=== PATIENT | male | born 1975 | race Caucasian/White ===

== ENCOUNTER 2016-12-21 13:27 | Inpatient (IN) | payer MEDICARE, MEDICAID ==
[2016-12-21] VITALS (9 sets, daily range): BP systolic 130–158; BP diastolic 71–94; PULSE 79–121; RESP 18–20; TEMP 98.2–100.1; O2SAT 96–100
[~2016-12-21] VITALS: Ht 172.7 cm; Wt 55.2 kg
[~2016-12-21 13:27] MED LIST: CHLO7.5 PO; DIPH25CA PO; FOLI400T PO; HYDR1CRE TOPICAL; LACO100 PO; LACO50 PO; MAPA325T PO; MILKSUS PO; SERO25TA PO; ZANT150T2 PO
[2016-12-21] MEDS ORDERED: AZITHROMYCIN INJ 500 MG in SODIUM CHLOR 0.9% 250 ML INJ 250 ML IV STA (13:36)
[2016-12-21] MEDS ORDERED: SODIUM CHLOR 0.9% 1000 ML INJ 800 ML IV ONE (13:36)
[2016-12-21] MEDS ORDERED: SODIUM CHLOR 0.9% 1000 ML INJ 1,000 ML IV ONE (13:36)
[2016-12-21] MEDS ORDERED: PIPERACIL-TAZO 4.5 GM PREMIX 100 ML IV STA (13:36)
[2016-12-21] MEDS ORDERED: RESP: ALBUTEROL 2.5 MG/3 ML NEB (SCH) INH ONE (13:45)
[2016-12-21] MEDS ORDERED: methylPREDNISolone SOD SUCC 125 MG/2 ML VIAL IV ONE (13:45)
--- NOTE | 2016-12-21 13:45 | PD ---
HPI Chief Complaint: ams Time Seen by Provider: 13:44 Travel History International Travel<30 days: No Contact w/Intl Traveler<30days: No Traveled to known affect area: No History of Present Illness HPI 41-year-old male with history of dementia, seizure disorder, schizoaffective disorder,resides in a [facility], currently being treated for pneumonia with Rocephin and Levaquin, presents to the emergency department today for evaluation of increasing lethargy. Patient has not been eating as well as he typically does and has been more tired. Per report, the patient has been sent here for IV fluids and further evaluation. At this time, patient is opening eyes spontaneously but is nonverbal and unable to provide any history. PFSH Past Medical History Alzheimer's Disease: Yes Autoimmune Disease: No Cardiovascular Problems: No Dementia: Yes Endocrine: No Musculoskeletal: Yes (UNSTABLE ON HIS FEET) Psychiatric: Yes (dementia) Respiratory: No Seizures: Yes Past Surgical History Pacemaker: No Other Surgery: Yes Social History Alcohol Use: No Tobacco Use: No Substance Use: Yes (marijuana) Allergies-Medications (Allergen,Severity, Reaction): Coded Allergies: Aricept (Verified Allergy, Severe, Seizures, 03/02/13) Depakote (Verified Allergy, Severe, UKN, 03/02/13) Exelon (Verified Allergy, Severe, Seizures, 03/02/13) Namenda (Verified Allergy, Severe, Seizures, 03/02/13) Reported Meds & Prescriptions Reported Meds & Active Scripts Active Diphenhydramine (Diphenhydramine HCl) 25 Mg Cap 25 Mg PO Q6H PRN 10 Days Hydrocortisone Topical 1% Cream 1 Applic TOPICAL BID 10 Days Vimpat (Lacosamide) 100 Mg Tab 100 Mg PO DAILY@1600 30 Days Vimpat (Lacosamide) 50 Mg Tab 50 Mg PO DAILY@0600 30 Days Reported Milk of Magnesia Liq (Magnesium Hydroxide) 400 Mg/5 Ml Susp 30 Ml PO EVERY 3 DAYS Folic Acid 400 Mcg Tab 400 Mcg PO DAILY Seroquel (Quetiapine Fumarate) 25 Mg Tab 25 Mg PO HS Zantac (Ranitidine HCl) 150 Mg Tab 150 Mg PO DAILY Tranxene T (Clorazepate Dipotassium) 7.5 Mg Tab 3.75 Mg PO BID Mapap (Acetaminophen) 325 Mg Tab 325 Mg PO Q4HR PRN Review of Systems Except as stated in HPI: all other systems reviewed are Neg Physical Exam Narrative GENERAL: Thin male pt, non verbal, lying in bed, in no acute distress SKIN: Warm and dry. HEAD: Atraumatic. Normocephalic. EYES: Pupils equal and round. No scleral icterus. No injection or drainage. ENT: No nasal bleeding or discharge. Mucous membranes pink and moist. NECK: Trachea midline. No JVD. CARDIOVASCULAR: Tachycardic rate and rhythm. No murmur appreciated. RESPIRATORY: No accessory muscle use.Coarse throughout. Breath sounds equal bilaterally. GASTROINTESTINAL: Abdomen soft, non-tender, nondistended. Hepatic and splenic margins not palpable. MUSCULOSKELETAL: No obvious deformities. No clubbing. No cyanosis. No edema. NEUROLOGICAL: Awake and alert. Unable to assess cranial nerves. Data Data Last Documented VS Vital Signs Date Time Temp Pulse Resp B/P Pulse Ox O2 Delivery O2 Flow Rate FiO2 12/21/16 14:51 96 Nasal Cannula 2 12/21/16 14:51 18 12/21/16 14:42 100.1 121 158/94 Orders Electrocardiogram (12/21/16 13:36) Complete Blood Count With Diff (12/21/16 13:36) Comprehensive Metabolic Panel (12/21/16 13:36) Prothrombin Time / Inr (Pt) (12/21/16 13:36) Act Partial Throm Time (Ptt) (12/21/16 13:36) Lactic Acid Sepsis Protocol (12/21/16 13:36) Magnesium (Mg) (12/21/16 13:36) Ckmb (Isoenzyme) Profile (12/21/16 13:36) Troponin I (12/21/16 13:36) Urinalysis - C+S If Indicated (12/21/16 13:36) Influenzae A/B Antigen (12/21/16 13:36) Blood Culture (12/21/16 13:36) Chest, Single Ap (12/21/16 13:36) Blood Glucose (12/21/16 13:36) Ecg Monitoring (12/21/16 13:36) Iv Access Insert/Monitor (12/21/16 13:36) Oximetry (12/21/16 13:36) Oxygen Administration (12/21/16 13:36) Piperacil-Tazo 4.5 Gm Premix (Zosyn 4.5 (12/21/16 13:36) Azithromycin Inj (Zithromax Inj) (12/21/16 13:36) Albuterol Neb (Albuterol Neb) (12/21/16 13:45) Methylprednisolone So Succ Inj (Solumedr (12/21/16 13:45) Sodium Chlor 0.9% 1000 Ml Inj (Ns 1000 M (12/21/16 13:36) Sodium Chlor 0.9% 1000 Ml Inj (Ns 1000 M (12/21/16 13:36) CKMB (12/21/16 13:55) CKMB% (12/21/16 13:55) Us Abdomen Gallbladder (12/21/16 ) Labs Laboratory Tests Test 12/21/16 12/21/16 13:55 14:00 White Blood Count 14.5 TH/MM3 Red Blood Count 5.21 MIL/MM3 Hemoglobin 15.4 GM/DL Hematocrit 46.7 % Mean Corpuscular Volume 89.7 FL Mean Corpuscular Hemoglobin 29.5 PG Mean Corpuscular Hemoglobin 32.9 % Concent Red Cell Distribution Width 13.8 % Platelet Count 456 TH/MM3 Mean Platelet Volume 9.5 FL Neutrophils (%) (Auto) 82.7 % Lymphocytes (%) (Auto) 8.0 % Monocytes (%) (Auto) 8.5 % Eosinophils (%) (Auto) 0.3 % Basophils (%) (Auto) 0.5 % Neutrophils # (Auto) 12.0 TH/MM3 Lymphocytes # (Auto) 1.2 TH/MM3 Monocytes # (Auto) 1.2 TH/MM3 Eosinophils # (Auto) 0.0 TH/MM3 Basophils # (Auto) 0.1 TH/MM3 CBC Comment DIFF FINAL Differential Comment Prothrombin Time 14.3 SEC Prothromb Time International 1.3 RATIO Ratio Activated Partial 28.0 SEC Thromboplast Time Urine Color ORANGE Urine Turbidity CLEAR Urine pH 6.0 Urine Specific [place] 1.046 Urine Protein 100 mg/dL Urine Glucose (UA) NEG mg/dL Urine Ketones NEG mg/dL Urine Occult Blood NEG Urine Nitrite NEG Urine Bilirubin NEG Urine Urobilinogen 2.0 MG/DL Urine Leukocyte Esterase NEG Urine WBC LESS THAN 1 /hpf Urine Mucus FEW /lpf Microscopic Urinalysis Comment CATH-CULT NOT IND Sodium Level 147 MEQ/L Potassium Level 4.5 MEQ/L Chloride Level 108 MEQ/L Carbon Dioxide Level 30.7 MEQ/L Anion Gap 8 MEQ/L Blood Urea Nitrogen 24 MG/DL Creatinine 0.95 MG/DL Estimat Glomerular Filtration 87 ML/MIN Rate Random Glucose 136 MG/DL Calcium Level 9.2 MG/DL Magnesium Level 2.6 MG/DL Total Bilirubin 0.6 MG/DL Aspartate Amino Transf 67 U/L (AST/SGOT) Alanine Aminotransferase 113 U/L (ALT/SGPT) Alkaline Phosphatase 179 U/L Total Creatine Kinase 548 U/L Creatine Kinase MB 6.3 NG/ML Creatine Kinase MB % 1.1 % Troponin I LESS THAN 0.02 NG/ML Total Protein 8.1 GM/DL Albumin 2.5 GM/DL Lactic Acid Level 2.5 mmol/L [facility] Medical Decision Making Medical Screen Exam Complete: Yes Emergency Medical Condition: Yes Medical Record Reviewed: Yes Differential Diagnosis pneumonia versus uti versus electrolyte abnormality verses sepsis Narrative Course 41-year-old male presents to emergency department from his [facility] facility for increasing lethargy. Patient is currently being treated for pneumonia. Patient is tachycardic and a poor historian due to dementia. He is febrile. Sepsis workup is initiated. Patient was given IV Zosyn and azithromycin. Normal saline fluid is ordered at 30 mg/kg Laboratory Tests Test 12/21/16 12/21/16 13:55 14:00 White Blood Count 14.5 TH/MM3 Red Blood Count 5.21 MIL/MM3 Hemoglobin 15.4 GM/DL Hematocrit 46.7 % Mean Corpuscular Volume 89.7 FL Mean Corpuscular Hemoglobin 29.5 PG Mean Corpuscular Hemoglobin 32.9 % Concent Red Cell Distribution Width 13.8 % Platelet Count 456 TH/MM3 Mean Platelet Volume 9.5 FL Neutrophils (%) (Auto) 82.7 % Lymphocytes (%) (Auto) 8.0 % Monocytes (%) (Auto) 8.5 % Eosinophils (%) (Auto) 0.3 % Basophils (%) (Auto) 0.5 % Neutrophils # (Auto) 12.0 TH/MM3 Lymphocytes # (Auto) 1.2 TH/MM3 Monocytes # (Auto) 1.2 TH/MM3 Eosinophils # (Auto) 0.0 TH/MM3 Basophils # (Auto) 0.1 TH/MM3 CBC Comment DIFF FINAL Differential Comment Prothrombin Time 14.3 SEC Prothromb Time International 1.3 RATIO Ratio Activated Partial 28.0 SEC Thromboplast Time Urine Color ORANGE Urine Turbidity CLEAR Urine pH 6.0 Urine Specific [place] 1.046 Urine Protein 100 mg/dL Urine Glucose (UA) NEG mg/dL Urine Ketones NEG mg/dL Urine Occult Blood NEG Urine Nitrite NEG Urine Bilirubin NEG Urine Urobilinogen 2.0 MG/DL Urine Leukocyte Esterase NEG Urine WBC LESS THAN 1 /hpf Urine Mucus FEW /lpf Microscopic Urinalysis Comment CATH-CULT NOT IND Sodium Level 147 MEQ/L Potassium Level 4.5 MEQ/L Chloride Level 108 MEQ/L Carbon Dioxide Level 30.7 MEQ/L Anion Gap 8 MEQ/L Blood Urea Nitrogen 24 MG/DL Creatinine 0.95 MG/DL Estimat Glomerular Filtration 87 ML/MIN Rate Random Glucose 136 MG/DL Calcium Level 9.2 MG/DL Magnesium Level 2.6 MG/DL Total Bilirubin 0.6 MG/DL Aspartate Amino Transf 67 U/L (AST/SGOT) Alanine Aminotransferase 113 U/L (ALT/SGPT) Alkaline Phosphatase 179 U/L Total Creatine Kinase 548 U/L Creatine Kinase MB 6.3 NG/ML Creatine Kinase MB % 1.1 % Troponin I LESS THAN 0.02 NG/ML Total Protein 8.1 GM/DL Albumin 2.5 GM/DL Lactic Acid Level 2.5 mmol/L Lab work is with leukocytosis of 14.5. Left shift with neutrophilia of 12. Lactic acid is elevated at 5. CMP with a mild hypernatremia of 147. Patient's liver enzymes are all elevated when compared to previous lab work. I have discussed the patient with my attending physician Dr. Garcia who also assessed the patient and reviewed the lab findings. Ultrasound of the gallbladder is ordered. [facility]. Sepsis Criteria SIRS Criteria (2 or more): Temp > 100.9 or < 96.8, Heart rate over 90, WBC > 60220, < 4000 or > 10% bands Sepsis Criteria (SIRS+source): Infect source susp/known Severe Sepsis (+one): Lactate >2 Diagnosis Primary Impression: Severe sepsis Additional Impressions: Pneumonia Qualified Code: J18.1 - Pneumonia of left lower lobe due to infectious organism Altered mental state Qualified Code: R41.82 - Altered mental status, unspecified altered mental status type Transaminitis Condition: Stable Melody Geller Dec 21, 2016 13:44
--- NOTE | 2016-12-21 14:23 | RADRPT ---
EXAM DATE/TIME: 12/21/2016 13:56 [place] COMPARISON: CHEST SINGLE AP, November 09, 2016, 11:16. INDICATIONS : Cough, chest congestion, syncope. MEDICAL HISTORY : None. SURGICAL HISTORY : None. ENCOUNTER: Initial ACUITY: 1 day PAIN SCORE: Non-responsive. LOCATION: Bilateral chest FINDINGS: A single view of the chest demonstrates an infiltrate in the left lung base. The right lung is grossl y clear. The left upper lung is grossly clear. The heart size is normal. No definite pleural effusion s. The bony structures are stable. CONCLUSION: Left lower lung infiltrate suggestive of pneumonia. Jelani Arias MD on December 21, 2016 at 14:21 Board Certified Radiologist. This report was verified electronically.
[2016-12-21 14:26] LABS: BASOPHIL # 0.1 TH/MM3 (0-0.2); BASOPHIL % 0.5 % (0.0-2.0); EOSINOPHIL % 0.3 % (0.0-4.0); HEMATOCRIT 46.7 % (39.0-51.0); HEMO FLAGS DIFF FINAL; LYMPHOCYTE # 1.2 TH/MM3 (1.0-4.8); MEAN CELL VOLUME 89.7 FL (80.0-100.0); MEAN CORPUSCULAR HEMOGLOBIN 29.5 PG (27.0-34.0); MEAN CORPUSCULAR HGB CONC 32.9 % (32.0-36.0); MONO % 8.5 % (0.0-8.0); NEUT % 82.7 % (16.0-70.0); PLATELET COUNT 456 TH/MM3 (150-450); RED BLOOD COUNT 5.21 MIL/MM3 (4.50-5.90); RED CELL DISTRIBUTION WIDTH 13.8 % (11.6-17.2); WHITE BLOOD COUNT 14.5 TH/MM3 (4.0-11.0)
[2016-12-21 14:29] LABS: BLOOD, URINE NEG (NEG); COMMENT (UR) CATH-CULT NOT IND; CULTURE IF INDICATED CATH CULTURE NOT IND; GLUCOSE,URINE NEG (NEG); KETONE, URINE NEG (NEG); MUCUS URINE FEW /lpf (OCC); NITRITE,URINE NEG (NEG); URINE COLOR ORANGE (YELLW/STRAW)
[2016-12-21 14:31] LABS: INTERNATIONAL NORMALIZED RATIO 1.3 RATIO; PROTHROMBIN TIME - PATIENT 14.3 SEC (9.8-11.6)
[2016-12-21 14:38] LABS: ALT (GPT) 113 U/L (12-78); ANION GAP 8 MEQ/L (5-15); AST (GOT) 67 U/L (15-37); BICARBONATE 30.7 MEQ/L (21.0-32.0); BLOOD UREA NITROGEN 24 MG/DL (7-18); CHLORIDE 108 MEQ/L (98-107); GLOMERULAR FILTRATION RATE 87 ML/MIN (>89); MAGNESIUM 2.6 MG/DL (1.5-2.5); POTASSIUM 4.5 MEQ/L (3.5-5.1); SODIUM (NA) 147 MEQ/L (136-145)
[2016-12-21 14:42] LABS: ALKALINE PHOSPHATASE 179 U/L (45-117); CREATINE KINASE 548 U/L (39-308); TOTAL BILIRUBIN ADULT 0.6 MG/DL (0.2-1.0)
[2016-12-21 14:54] LABS: CKMB 6.3 NG/ML (0.5-3.6)
[2016-12-21] MEDS ORDERED: ONDANSETRON HCL 4 MG/2 ML VIAL IVP PRN (15:15)
[2016-12-21] MEDS ORDERED: ROCE1INJ3 IM (15:15)
[2016-12-21] MEDS ORDERED: LORA-392 PO (15:15)
[2016-12-21] MEDS ORDERED: NALOXONE HCL 0.4 MG/ML AMP IV PRN (15:15)
[2016-12-21] MEDS ORDERED: SODIUM CHLORIDE 0.9% FLUSH 5 ML FLUSH FLUSH PRN (15:15)
[2016-12-21] MEDS ORDERED: OXCA600T PO ×2 (15:15)
[2016-12-21] MEDS ORDERED: Vancomycin Consult Pharmacy 1 EA OTHER SCH (15:15)
[2016-12-21] MEDS ORDERED: REME15TA PO (15:15)
[2016-12-21] MEDS ORDERED: ACETAMINOPHEN 325 MG TAB PO PRN (15:15)
[2016-12-21] MEDS ORDERED: NYST1000 SWISH-SWAL (15:15)
[2016-12-21] MEDS ORDERED: LEVO500T3 PO (15:15)
--- NOTE | 2016-12-21 15:59 | HHI.HP ---
[facility] Juan Manuel Farley M.D. Admission Diagnosis SEVERE SEPSIS, PNA; AMS Diagnoses: Chief Complaint: altered mental status (Tarah Patricio) Travel History International Travel<30 Days: No Contact w/Intl Traveler <30 Da: No Traveled to Known Affected Are: No (Tarah Patricio) History of Present Illness This is an unfortunate 41-year-old male with history of early-onset dementia, psychosis, seizure disorder. Patient was recently admitted from 11/04 to 11/19 with sepsis, resp. failure, aspiration PNA, acute renal injury, rash. Patient was sent back from the sn[facility] for evaluation of altered mental status and decreased oral intake. Patient was been treated for pneumonia with Rocephin IM and by mouth Levaquin. Patient is unable to provide any information, he is demented and nonverbal. Information is obtained from the medical record and from snf documentation. Patient was evaluated in the emergency room, he was noted tachycardic, febrile, blood pressure was stable. Sats were 96% on 2 L. He was noted with leukocytosis, WBC 14.5, with elevated neutrophil count. Lactic acid 2.5. Sodium level was 147, BUNs 24, creatinine 0.95. He was noted with elevated liver enzymes, AST 67, AST 113 and alkaline phosphatase 179. Chest x-ray was done showing left lower lobe infiltrate. An ultrasound of the gallbladder we will was done because of elevation in liver enzymes. Last Impressions Chest X-Ray 12/21/16 1336 Signed Impressions: Service Date/Time: Wednesday, December 21, 2016 13:56 - CONCLUSION: Left lower lung infiltrate suggestive of pneumonia. Jelani Arias MD Gall Bladder Ultrasound 12/21/16 0000 Signed Impressions: Service Date/Time: Wednesday, December 21, 2016 15:16 - CONCLUSION: Negative sonogram of the liver and gallbladder. Celio Wheat MD Patient was fluid resuscitated, cultures were obtained and he was started on empiric antibiotics. Patient is evaluated in the emergency room, he is nonverbal. He's noted twitching, does not track, he is tachycardic 110s. Blood pressure stable. Patient is admitted for further evaluation and treatment. (Tarah Patricoi) Review of Systems ROS Limitations: Clinical Condition, Altered Mental Status, Speech Impaired, Poor Historian (Tarah Patricio) Past Family Social History Past Medical History Alzheimer's disease Seizure disease Psychosis Admitted 11/04 to 11/19 with sepsis, resp. failure, aspiration PNA, acute renal injury, rash. Past Surgical History unable to obtain, none per review of medical records Reported Medications Reported Meds & Active Scripts Active Diphenhydramine (Diphenhydramine HCl) 25 Mg Cap 25 Mg PO Q6H PRN 10 Days Vimpat (Lacosamide) 100 Mg Tab 100 Mg PO DAILY@1600 30 Days Vimpat (Lacosamide) 50 Mg Tab 50 Mg PO DAILY@0600 30 Days Reported Oxcarbazepine 600 Mg Tab 600 Mg PO HS Oxcarbazepine 600 Mg Tab 1,200 Mg PO DAILY Ativan (Lorazepam) 0.5 Mg Tab 0.5 Mg PO Q8H PRN Levofloxacin 500 Mg Tab 500 Mg PO DAILY Rocephin Inj (Ceftriaxone Sodium) 1 Gm Inj 1 Gm IM Q24H Nystatin Liq 100,000 unit/ml Susp 5 Ml SWISH-SWAL TID Remeron (Mirtazapine) 15 Mg Tab 7.5 Mg PO HS Milk of Magnesia Liq (Magnesium Hydroxide) 400 Mg/5 Ml Susp 30 Ml PO EVERY 3 DAYS Folic Acid 400 Mcg Tab 400 Mcg PO DAILY Seroquel (Quetiapine Fumarate) 25 Mg Tab 25 Mg PO HS Zantac (Ranitidine HCl) 150 Mg Tab 150 Mg PO DAILY Tranxene T (Clorazepate Dipotassium) 7.5 Mg Tab 3.75 Mg PO BID Mapap (Acetaminophen) 325 Mg Tab 325 Mg PO Q4HR PRN (Tarah Patricio) Allergies: Coded Allergies: Aricept (Verified Allergy, Severe, Seizures, 03/02/13) Depakote (Verified Allergy, Severe, UKN, 03/02/13) Exelon (Verified Allergy, Severe, Seizures, 03/02/13) Namenda (Verified Allergy, Severe, Seizures, 03/02/13) Active Ordered Medications Inpatient Medications Acetaminophen (Tylenol) 650 mg Q4H PRN PO TEMP > 100.4; Start 12/21/16 at 15:15 Albuterol Sulfate (Albuterol Neb) 2.5 mg ONCE ONCE INH Last administered on 14:03; Start 12/21/16 at 13:45; Stop 12/21/16 at 13:46; Status DC Azithromycin/ Sodium Chloride (Zithromax Inj/ NS 250 ml Inj) 250 ml @ 250 mls/ hr ONCE STAT IV Last administered on 12/21/16 13:57; Start 12/21/16 at 13:36 ; Stop 12/21/16 at 14:35; Status DC Cefepime HCl/ Sodium Chloride (Maxipime Inj/NS Inj) 100 ml @ 200 mls/hr Q12H IV ; Start 12/21/16 at 16:00 Heparin Sodium (Porcine) (Heparin Inj) 5,000 units Q12H SQ ; Start 12/21/16 at 15:15 IV Flush (NS Flush) 2 ml BID FLUSH ; Start 12/21/16 at 21:00 Methylprednisolone Sodium Succinate 125 mg 125 mg ONCE ONCE IV Last administered on 12/21/16 13:56; Start 12/21/16 at 13:45; Stop 12/21/16 at 13:46 ; Status DC Miscellaneous Information SPECIFIC LAB TO BE ... ONCE ONCE XX ; Start at 03:45; Stop 12/23/16 at 03:46 Naloxone HCl 0.4 mg 0.4 mg UNSCH PRN IV SEE LABEL COMMENTS; Start 12/21/16 at 15:15 Ondansetron HCl (Zofran Inj) 4 mg Q6H PRN IVP NAUSEA OR VOMITING; Start at 15:15 Pharmacy Profile Note 0 ml @ 0 mls/hr UNSCH OTHER ; Start 12/21/16 at 15:15 Piperacillin Sod/ Tazobactam Sod 100 ml @ 200 mls/hr ONCE STAT IV Last administered on 12/21/16 13:57; Start 12/21/16 at 13:36; Stop 12/21/16 at 14:05 ; Status DC Sodium Chloride (NS 1000 ml Inj) 1,000 ml @ 100 mls/hr Q10H IV ; Start at 15:05 Vancomycin HCl 1000 mg/Sodium Chloride 250 ml @ 250 mls/hr Q12H IV ; Start at 16:00 Family History Alzheimer's dementia Social History Lives at snf, no hx of ETOH, no substance abuse, no smoking. (Tarah Patricio) Physical Exam Vital Signs Vital Signs Date Time Temp Pulse Resp B/P Pulse Ox O2 Delivery O2 Flow Rate FiO2 12/21/16 14:51 96 Nasal Cannula 2 12/21/16 14:51 96 Nasal Cannula 2 12/21/16 14:51 18 96 Nasal Cannula 2 12/21/16 14:42 100.1 121 18 158/94 96 Physical Exam GENERAL: This is a thin built male, demented, doesn't follow commands. SKIN: No rashes, ecchymoses or lesions. Cool and dry. Tenting noted. HEAD: Atraumatic. Normocephalic. No temporal or scalp tenderness. EYES: Pupils equal round and reactive. Extraocular motions intact. No scleral icterus. No injection or drainage. ENT: Nose without bleeding, purulent drainage or septal hematoma. Throat without erythema, tonsillar hypertrophy or exudate. Uvula midline. Airway patent. Oral mucosa dry. NECK: Trachea midline. No JVD or lymphadenopathy. Supple, nontender, no meningeal signs. CARDIOVASCULAR: Regular rate and rhythm, sinus tachycardia, no murmurs, no rubs , no gallops. Bilateral lower extremities without any clubbing, no cyanosis, no edema. Pedal pulses 2+ bilaterally RESPIRATORY: Diminished at bases GASTROINTESTINAL: Abdomen soft, non-tender, nondistended. No hepato-splenomegaly , or palpable masses. No guarding. MUSCULOSKELETAL: Extremities without clubbing, cyanosis, or edema. No joint tenderness, effusion, or edema noted. No calf tenderness. Negative Homans sign bilaterally. Muscle atrophy noted. NEUROLOGICAL: Patient is awake, nonverbal, demented. Does not follow commands. Slight twitching noted of upper extremities. Laboratory Laboratory Tests Test 12/21/16 12/21/16 13:55 14:00 White Blood Count 14.5 Red Blood Count 5.21 Hemoglobin 15.4 Hematocrit 46.7 Mean Corpuscular Volume 89.7 Mean Corpuscular Hemoglobin 29.5 Mean Corpuscular Hemoglobin 32.9 Concent Red Cell Distribution Width 13.8 Platelet Count 456 Mean Platelet Volume 9.5 Neutrophils (%) (Auto) 82.7 Lymphocytes (%) (Auto) 8.0 Monocytes (%) (Auto) 8.5 Eosinophils (%) (Auto) 0.3 Basophils (%) (Auto) 0.5 Neutrophils # (Auto) 12.0 Lymphocytes # (Auto) 1.2 Monocytes # (Auto) 1.2 Eosinophils # (Auto) 0.0 Basophils # (Auto) 0.1 CBC Comment DIFF FINAL Differential Comment Prothrombin Time 14.3 Prothromb Time International 1.3 Ratio Activated Partial 28.0 Thromboplast Time Urine Color ORANGE Urine Turbidity CLEAR Urine pH 6.0 Urine Specific [place] 1.046 Urine Protein 100 Urine Glucose (UA) NEG Urine Ketones NEG Urine Occult Blood NEG Urine Nitrite NEG Urine Bilirubin NEG Urine Urobilinogen 2.0 Urine Leukocyte Esterase NEG Urine WBC LESS THAN 1 Urine Mucus FEW Microscopic Urinalysis Comment CATH-CULT NOT IND Sodium Level 147 Potassium Level 4.5 Chloride Level 108 Carbon Dioxide Level 30.7 Anion Gap 8 Blood Urea Nitrogen 24 Creatinine 0.95 Estimat Glomerular Filtration 87 Rate Random Glucose 136 Calcium Level 9.2 Magnesium Level 2.6 Total Bilirubin 0.6 Aspartate Amino Transf 67 (AST/SGOT) Alanine Aminotransferase 113 (ALT/SGPT) Alkaline Phosphatase 179 Total Creatine Kinase 548 Creatine Kinase MB 6.3 Creatine Kinase MB % 1.1 Troponin I LESS THAN 0.02 Total Protein 8.1 Albumin 2.5 Lactic Acid Level 2.5 Date/Time Procedure Status Source Growth 12/21/16 14:15 Influenza Types A,B Antigen (LORY) Received Nasal Washing Pending 12/21/16 14:15 Aerobic Blood Culture Ordered Blood Peripheral Pending 12/21/16 14:15 Anaerobic Blood Culture Ordered Blood Peripheral Pending (Tarah Patricio) Result Diagram: 12/21/16 1355 12/21/16 1355 Imaging Last Impressions Chest X-Ray 12/21/16 1336 Signed Impressions: Service Date/Time: Wednesday, December 21, 2016 13:56 - CONCLUSION: Left lower lung infiltrate suggestive of pneumonia. Jelani Arias MD (Tarah Patricio) Septic Shock Reassessment Heart: Regular rate and rhythm Lungs: Diminished Skin: Warm, Dry Peripheral Pulses: Bounding Right Radial Bounding Left Radial Bounding Right Popliteal Bounding Left Popliteal Bounding Right Dorsalis Pedis Bounding Left Dorsalis Pedis Bounding Right Posterior Tibial Bounding Left Posterior Tibial Capillary Refill: Brisk (Tarah Patricio) Assessment and Plan Problem List: (1) Altered mental state (2) Sepsis (3) Failure of outpatient treatment (4) Pneumonia (5) Transaminitis (6) HX EARLY ONSET DEMENTIA (7) Seizures (8) Hypernatremia Assessment and Plan Admit to Dr. Albright 41-year-old male sent from snf with altered mental status, was been treated with ceftriaxone and Levaquin for pneumonia. Recently admitted in October with sepsis, pneumonia, and respiratory failure. In the ER, patient evaluated and noted with leukocytosis, lactic acidosis, febrile with tachycardia , chest x-ray with findings of left lower lobe infiltrate. Admitted with sepsis secondary to pneumonia that has failed outpatient therapy, possibly aspiration and healthcare acquired pneumonia. -Continue with IV fluid resuscitation Follow lactic acid in the morning Continue with antibiotics, follow cultures May need infectious disease evaluation Keep nothing by mouth at this time until swallow eval done Transaminitis, possibly secondary to sepsis Repeat LFTs in the morning Ultrasound of gallbladder and liver has been completed, no abnormalities noted. Hypernatremia -repeat sodium level Hx of early onset dementia -continue home meds Seizure disorder -resume home meds, if pt. can take PO or administer via NGT Psychosis -continue home meds Heparin for DVT prophylaxis Protonix for GI prophylaxis Home medications reviewed, some initiated as indicated Patient is a full code. Condition is guarded. Plan of care discussed with attending and registered nurse. Further management of the patient will be dependent on the hospital course This patient was seen by myself and Dr. Albright, this H&P is written on his behalf (Tarah Patricio) Assessment and Plan seen, examined by myself, Dr Albright, today, at the emergency department room alpha 5 Discussed with emergency physician Patient has healthcare associated pneumonia We will treat with intravenous vancomycin and cefepime Discussed with mid level provider The exam, history, and the medical decision-making described in the above note were completed with the assistance of the mid-level provider. I reviewed the findings presented. I attest that I had a [id number] encounter with the patient on the same day, and personally performed and documented my assessment and findings in the medical record. (Orestes Albright MD) Physician Certification 2 Midnight Certification Type: Admission for Inpatient Services Order for Inpatient Services The services are ordered in accordance with Medicare regulations or non- Medicare payer requirements, as applicable. In the case of services not specified as inpatient-only, they are appropriately provided as inpatient services in accordance with the 2-midnight benchmark. Estimated LOS (days): 2 2 days is the estimated time the patient will need to remain in the hospital, assuming treatment plan goals are met and no additional complications. Post-Hospital Plan: SNF (Tarah Patricio) Problem Qualifiers (1) Altered mental state: Qualified Code: R41.82 - Altered mental status, unspecified altered mental status type (2) Sepsis: Qualified Code: A41.9 - Sepsis, due to unspecified organism (3) Pneumonia: Qualified Code: J18.1 - Pneumonia of left lower lobe due to infectious organism Tarah Patricio Dec 21, 2016 15:59 Orestes Albright MD Dec 21, 2016 18:27
[2016-12-21 16:14] LABS: LACTIC ACID GHOST NOT REPORTABLE
[2016-12-21] MEDS: HEPARIN SODIUM - SQ 10,000 UNITS/ML VIAL SQ SCH (16:21)
[2016-12-21] MEDS: SODIUM CHLOR 0.9% 1000 ML INJ 1,000 ML IV SCH (16:21)
[2016-12-21] MEDS: VANCOMYCIN INJ 1,000 MG in SODIUM CHLOR 0.9% 250 ML INJ 250 ML IV SCH (16:22)
--- NOTE | 2016-12-21 16:24 | PD ---
Physical Exam Date Seen by Provider: Dec 21, 2016 Time Seen by Provider: 14:00 Narrative I, Dr. Garcia, have reviewed the advance practice practitioner's documentation and am in agreement, met with the patient face to face, made the diagnosis, and the medical decision making was done by me. *My assessment and Findings: Patient seen and evaluated with nurse practitioner , please see nurse practitioner note for further details. Here with altered mental status according to [facility] notes, recent history of pneumonia, fairly tachycardic in the ER. Patient is nonverbal in the ER. Cardiac exam shows significant fast heart rate but was regular. Pulmonary exam shows decreased breath sounds in both sides. Patient does not appear to be having significant tenderness on palpation of the abdomen. Abdomen is soft, nondistended. Laboratory Tests Test 12/21/16 12/21/16 13:55 14:00 White Blood Count 14.5 TH/MM3 (4.0-11.0) Platelet Count 456 TH/MM3 (150-450) Neutrophils (%) (Auto) 82.7 % (16.0-70.0) Lymphocytes (%) (Auto) 8.0 % (9.0-44.0) Monocytes (%) (Auto) 8.5 % (0.0-8.0) Neutrophils # (Auto) 12.0 TH/MM3 (1.8-7.7) Monocytes # (Auto) 1.2 TH/MM3 (0-0.9) Prothrombin Time 14.3 SEC (9.8-11.6) Urine Color ORANGE (YELLW/STRAW) Urine Specific [place] 1.046 (1.002-1.035) Urine Protein 100 mg/dL (NEG-TRACE) Urine Mucus FEW /lpf (OCC) Sodium Level 147 MEQ/L (136-145) Chloride Level 108 MEQ/L (98-107) Blood Urea Nitrogen 24 MG/DL (7-18) Estimat Glomerular Filtration 87 ML/MIN (>89) Rate Random Glucose 136 MG/DL (74-106) Magnesium Level 2.6 MG/DL (1.5-2.5) Aspartate Amino Transf 67 U/L (15-37) (AST/SGOT) Alanine Aminotransferase 113 U/L (12-78) (ALT/SGPT) Alkaline Phosphatase 179 U/L (45-117) Total Creatine Kinase 548 U/L (39-308) Creatine Kinase MB 6.3 NG/ML (0.5-3.6) Troponin I LESS THAN 0.02 NG/ML (0.02-0.05) Albumin 2.5 GM/DL (3.4-5.0) Lactic Acid Level 2.5 mmol/L (0.4-2.0) Last 24 hours Impressions Chest X-Ray 12/21/16 1336 Signed Impressions: Service Date/Time: Wednesday, December 21, 2016 13:56 - CONCLUSION: Left lower lung infiltrate suggestive of pneumonia. Jelani Arias MD Considering the tachycardia and recent pneumonia history, sepsis protocol was initiated in the ER. Chest x-ray shows left-sided pneumonia. IV antibiotics were initiated in the ER after cultures are drawn. Lab work returned showing significant white blood cell count and lactate elevation. Patient is admitted for sepsis after discussion with [facility]. Data Data Last Documented VS Vital Signs Date Time Temp Pulse Resp B/P Pulse Ox O2 Delivery O2 Flow Rate FiO2 12/21/16 14:51 96 Nasal Cannula 2 12/21/16 14:51 18 12/21/16 14:42 100.1 121 158/94 Orders Electrocardiogram (12/21/16 13:36) Complete Blood Count With Diff (12/21/16 13:36) Comprehensive Metabolic Panel (12/21/16 13:36) Prothrombin Time / Inr (Pt) (12/21/16 13:36) Act Partial Throm Time (Ptt) (12/21/16 13:36) Lactic Acid Sepsis Protocol (12/21/16 13:36) Magnesium (Mg) (12/21/16 13:36) Ckmb (Isoenzyme) Profile (12/21/16 13:36) Troponin I (12/21/16 13:36) Urinalysis - C+S If Indicated (12/21/16 13:36) Blood Culture (12/21/16 13:36) Chest, Single Ap (12/21/16 13:36) Blood Glucose (12/21/16 13:36) Ecg Monitoring (12/21/16 13:36) Iv Access Insert/Monitor (12/21/16 13:36) Oximetry (12/21/16 13:36) Oxygen Administration (12/21/16 13:36) Piperacil-Tazo 4.5 Gm Premix (Zosyn 4.5 (12/21/16 13:36) Azithromycin Inj (Zithromax Inj) (12/21/16 13:36) Albuterol Neb (Albuterol Neb) (12/21/16 13:45) Methylprednisolone So Succ Inj (Solumedr (12/21/16 13:45) Sodium Chlor 0.9% 1000 Ml Inj (Ns 1000 M (12/21/16 13:36) Sodium Chlor 0.9% 1000 Ml Inj (Ns 1000 M (12/21/16 13:36) CKMB (12/21/16 13:55) CKMB% (12/21/16 13:55) Us Abdomen Gallbladder (12/21/16 ) Admit To Inpatient (12/21/16 ) Vital Signs (Adult) Q4H (12/21/16 15:05) Activity Bed Rest (12/21/16 15:05) Fashion Coordinator / Telemetry .CONTINUOUS (12/21/16 15:05) Diet Regular Basic (12/21/16 Dinner) Sodium Chlor 0.9% 1000 Ml Inj (Ns 1000 M (12/21/16 15:05) Sodium Chloride 0.9% Flush (Ns Flush) (12/21/16 15:15) Sodium Chloride 0.9% Flush (Ns Flush) (12/21/16 21:00) Acetaminophen (Tylenol) (12/21/16 15:15) Ondansetron Inj (Zofran Inj) (12/21/16 15:15) Basic Metabolic Panel (Bmp) (12/22/16 06:00) Complete Blood Count With Diff (12/22/16 06:00) Heparin Inj (Heparin Inj) (12/21/16 15:15) Naloxone Inj (Narcan Inj) (12/21/16 15:15) Inpatient Certification (12/21/16 ) Vancomycin Consult Pharmacy (Vancomycin (12/21/16 15:15) Vancomycin Inj (Vancomycin Inj) (12/21/16 16:00) Cefepime Inj (Maxipime Inj) (12/21/16 16:00) Admit Order (Ed Use Only) (12/21/16 15:26) Labs Laboratory Tests Test 12/21/16 12/21/16 13:55 14:00 White Blood Count 14.5 TH/MM3 Red Blood Count 5.21 MIL/MM3 Hemoglobin 15.4 GM/DL Hematocrit 46.7 % Mean Corpuscular Volume 89.7 FL Mean Corpuscular Hemoglobin 29.5 PG Mean Corpuscular Hemoglobin 32.9 % Concent Red Cell Distribution Width 13.8 % Platelet Count 456 TH/MM3 Mean Platelet Volume 9.5 FL Neutrophils (%) (Auto) 82.7 % Lymphocytes (%) (Auto) 8.0 % Monocytes (%) (Auto) 8.5 % Eosinophils (%) (Auto) 0.3 % Basophils (%) (Auto) 0.5 % Neutrophils # (Auto) 12.0 TH/MM3 Lymphocytes # (Auto) 1.2 TH/MM3 Monocytes # (Auto) 1.2 TH/MM3 Eosinophils # (Auto) 0.0 TH/MM3 Basophils # (Auto) 0.1 TH/MM3 CBC Comment DIFF FINAL Differential Comment Prothrombin Time 14.3 SEC Prothromb Time International 1.3 RATIO Ratio Activated Partial 28.0 SEC Thromboplast Time Urine Color ORANGE Urine Turbidity CLEAR Urine pH 6.0 Urine Specific [place] 1.046 Urine Protein 100 mg/dL Urine Glucose (UA) NEG mg/dL Urine Ketones NEG mg/dL Urine Occult Blood NEG Urine Nitrite NEG Urine Bilirubin NEG Urine Urobilinogen 2.0 MG/DL Urine Leukocyte Esterase NEG Urine WBC LESS THAN 1 /hpf Urine Mucus FEW /lpf Microscopic Urinalysis Comment CATH-CULT NOT IND Sodium Level 147 MEQ/L Potassium Level 4.5 MEQ/L Chloride Level 108 MEQ/L Carbon Dioxide Level 30.7 MEQ/L Anion Gap 8 MEQ/L Blood Urea Nitrogen 24 MG/DL Creatinine 0.95 MG/DL Estimat Glomerular Filtration 87 ML/MIN Rate Random Glucose 136 MG/DL Calcium Level 9.2 MG/DL Magnesium Level 2.6 MG/DL Total Bilirubin 0.6 MG/DL Aspartate Amino Transf 67 U/L (AST/SGOT) Alanine Aminotransferase 113 U/L (ALT/SGPT) Alkaline Phosphatase 179 U/L Total Creatine Kinase 548 U/L Creatine Kinase MB 6.3 NG/ML Creatine Kinase MB % 1.1 % Troponin I LESS THAN 0.02 NG/ML Total Protein 8.1 GM/DL Albumin 2.5 GM/DL Lactic Acid Level 2.5 mmol/L [facility] Medical Record Reviewed: Yes Supervised Visit with CONSUELO: Yes Diagnosis Primary Impression: Severe sepsis Additional Impressions: Transaminitis Altered mental state Qualified Code: R41.82 - Altered mental status, unspecified altered mental status type Pneumonia Qualified Code: J18.1 - Pneumonia of left lower lobe due to infectious organism Admitting Information Admitting Physician Requests: Admit Condition: Stable Praful Garcia MD Dec 21, 2016 16:23
--- NOTE | 2016-12-21 16:25 | RADRPT ---
EXAM DATE/TIME: 12/21/2016 15:16 [place] COMPARISON: No previous studies available for comparison. INDICATIONS : Right upper quadrant pain. MEDICAL HISTORY : Alzheimer's Dementia. Siezures. Dizziness. Unstable on feet. Schizoaffective disorder. Contractur es. SURGICAL HISTORY : Open reduction of right ankle. ENCOUNTER: Initial ACUITY: 1 day PAIN SCORE: Nonresponsive. LOCATION: Right upper quadrant MEASUREMENTS: LIVER: 17.9 cm length COMMON DUCT: 4 mm RIGHT KIDNEY: 10.3 x 5.1 x 4.8 cm FINDINGS: LIVER: Normal echotexture without focal lesion or ductal dilatation. Hepatopedal flow seen in the portal ve in. COMMON DUCT: No intraluminal mass or stone visualized. GALLBLADDER: Contains no stones, demonstrates no wall thickening or pericholecystic fluid. PANCREAS: The visualized portions are within normal limits. RIGHT KIDNEY: No evidence of hydronephrosis, stone, or mass. CONCLUSION: Negative sonogram of the liver and gallbladder. Celio Wheat MD on December 21, 2016 at 16:22 Board Certified Radiologist. This report was verified electronically.
[2016-12-21] MEDS ORDERED: RESP: ALBUTEROL 2.5 MG/IPRATROPIUM 0.5 MG NEB (PRN) NEB (17:30)
[2016-12-21] MEDS ORDERED: diphenhydrAMINE HCL 25 MG CAP PO PRN (17:30)
[2016-12-21] MEDS: CEFEPIME INJ 2,000 MG in SODIUM CHLORIDE 0.9% INJ 100 ML IV SCH (18:13)
[2016-12-21] MEDS: PANTOPRAZOLE SODIUM 40 MG VIAL IV PUSH SCH (18:14)
[2016-12-21] MEDS: LACOSAMIDE 100 MG TAB PO SCH (20:00)
[2016-12-21] MEDS: MIRTAZAPINE 15 MG TAB PO SCH (21:00)
[2016-12-21] MEDS: SODIUM CHLORIDE 0.9% FLUSH 5 ML FLUSH FLUSH SCH (21:00)
[2016-12-21] MEDS: OXcarbazepine 600 MG TAB PO SCH (21:00)
[2016-12-21] MEDS: DIAZEPAM 2 MG TAB PO SCH (21:00)
[2016-12-21] MEDS: QUEtiapine FUMARATE 25 MG TAB PO SCH (21:00)
[2016-12-22] VITALS (22 sets, daily range): BP systolic 116–159; BP diastolic 74–95; PULSE 83–115; RESP 14–20; TEMP 97.5–98.9; O2SAT 94–99
[2016-12-22] MEDS: SODIUM CHLOR 0.9% 1000 ML INJ 1,000 ML IV SCH (01:05)
[2016-12-22] MEDS: HEPARIN SODIUM - SQ 10,000 UNITS/ML VIAL SQ SCH ×2 (03:15→16:52)
[2016-12-22] MEDS: VANCOMYCIN INJ 1,000 MG in SODIUM CHLOR 0.9% 250 ML INJ 250 ML IV SCH ×2 (04:00→16:00)
[2016-12-22] MEDS: LACOSAMIDE 50 MG TAB PO SCH (06:00)
[2016-12-22] MEDS: CEFEPIME INJ 2,000 MG in SODIUM CHLORIDE 0.9% INJ 100 ML IV SCH ×2 (06:00→17:00)
[2016-12-22 06:34] LABS: BICARBONATE 29.7 MEQ/L (21.0-32.0); MAGNESIUM 2.7 MG/DL (1.5-2.5); POTASSIUM 4.8 MEQ/L (3.5-5.1)
[2016-12-22 06:38] LABS: AUTOMATED NEUTROPHIL # 9.9 TH/MM3 (1.8-7.7); BASOPHIL % 0.2 % (0.0-2.0); EOSINOPHIL % 0.1 % (0.0-4.0); HEMATOCRIT 39.3 % (39.0-51.0); HEMO FLAGS DIFF FINAL; LYMPH % 12.8 % (9.0-44.0); LYMPHOCYTE # 1.6 TH/MM3 (1.0-4.8); MEAN CELL VOLUME 90.4 FL (80.0-100.0); MEAN CORPUSCULAR HEMOGLOBIN 28.9 PG (27.0-34.0); MONO % 9.5 % (0.0-8.0); NEUT % 77.4 % (16.0-70.0); PLATELET COUNT 403 TH/MM3 (150-450); RED BLOOD COUNT 4.35 MIL/MM3 (4.50-5.90); WHITE BLOOD COUNT 12.8 TH/MM3 (4.0-11.0)
[2016-12-22] MEDS: DEXTROSE 5% IN WATE 1000ML INJ 1,000 ML IV SCH (08:00)
[2016-12-22] MEDS: SODIUM CHLORIDE 0.9% FLUSH 5 ML FLUSH FLUSH SCH ×2 (09:00→21:49)
[2016-12-22] MEDS: OXcarbazepine 600 MG TAB PO SCH ×3 (09:00→21:49)
[2016-12-22] MEDS: DIAZEPAM 2 MG TAB PO SCH ×3 (09:00→21:48)
--- NOTE | 2016-12-22 09:54 | HHI.PR ---
Subjective Remarks unable to place NGT pt. non verbal, grunts at times, no following commands at times appears to track not following commands no fever HR improved BP stable Objective Objective Results - Vital Signs Date Time Temp Pulse Resp B/P Pulse Ox O2 Delivery O2 Flow Rate FiO2 12/22/16 08:09 98.7 100 18 116/91 97 12/22/16 06:00 95 12/22/16 05:00 93 12/22/16 04:00 95 12/22/16 03:00 95 12/22/16 03:00 98.0 98 16 120/92 99 12/22/16 02:00 115 12/22/16 01:00 108 12/22/16 00:00 97.5 108 16 125/88 95 12/22/16 00:00 84 12/21/16 23:00 79 12/21/16 22:00 94 12/21/16 21:00 98.2 107 130/91 100 12/21/16 21:00 109 12/21/16 18:19 97 18 136/71 99 Nasal Cannula 2 12/21/16 17:00 112 20 141/85 99 Nasal Cannula 2 12/21/16 16:00 110 20 135/72 99 Nasal Cannula 2 12/21/16 15:00 116 20 131/84 100 Nasal Cannula 2 12/21/16 14:51 96 Nasal Cannula 2 12/21/16 14:51 96 Nasal Cannula 2 12/21/16 14:51 18 96 Nasal Cannula 2 12/21/16 14:42 100.1 121 18 158/94 96 I/O 12/21/16 12/21/16 12/21/16 12/22/16 12/22/16 12/22/16 07:00 15:00 23:00 07:00 15:00 23:00 Intake Total 500 ml Balance 500 ml Intake IV Total 500 ml # Voids 2 # Bowel Movements 1 Result Diagram: 12/22/16 0607 12/22/16 0607 Imaging Last Impressions Chest X-Ray 12/21/16 1336 Signed Impressions: Service Date/Time: Wednesday, December 21, 2016 13:56 - CONCLUSION: Left lower lung infiltrate suggestive of pneumonia. Jelani Arias MD Other Results Laboratory Tests Test 12/21/16 12/21/16 12/21/16 12/21/16 13:55 14:00 16:40 21:49 White Blood Count 14.5 Red Blood Count 5.21 Hemoglobin 15.4 Hematocrit 46.7 Mean Corpuscular Volume 89.7 Mean Corpuscular Hemoglobin 29.5 Mean Corpuscular Hemoglobin 32.9 Concent Red Cell Distribution Width 13.8 Platelet Count 456 Mean Platelet Volume 9.5 Neutrophils (%) (Auto) 82.7 Lymphocytes (%) (Auto) 8.0 Monocytes (%) (Auto) 8.5 Eosinophils (%) (Auto) 0.3 Basophils (%) (Auto) 0.5 Neutrophils # (Auto) 12.0 Lymphocytes # (Auto) 1.2 Monocytes # (Auto) 1.2 Eosinophils # (Auto) 0.0 Basophils # (Auto) 0.1 CBC Comment DIFF FINAL Differential Comment Prothrombin Time 14.3 Prothromb Time International 1.3 Ratio Activated Partial 28.0 Thromboplast Time Urine Color ORANGE Urine Turbidity CLEAR Urine pH 6.0 Urine Specific [place] 1.046 Urine Protein 100 Urine Glucose (UA) NEG Urine Ketones NEG Urine Occult Blood NEG Urine Nitrite NEG Urine Bilirubin NEG Urine Urobilinogen 2.0 Urine Leukocyte Esterase NEG Urine WBC LESS THAN 1 Urine Mucus FEW Microscopic Urinalysis Comment CATH-CULT NOT IND Sodium Level 147 Potassium Level 4.5 Chloride Level 108 Carbon Dioxide Level 30.7 Anion Gap 8 Blood Urea Nitrogen 24 Creatinine 0.95 Estimat Glomerular Filtration 87 Rate Random Glucose 136 Calcium Level 9.2 Magnesium Level 2.6 Total Bilirubin 0.6 Aspartate Amino Transf 67 (AST/SGOT) Alanine Aminotransferase 113 (ALT/SGPT) Alkaline Phosphatase 179 Total Creatine Kinase 548 Creatine Kinase MB 6.3 Creatine Kinase MB % 1.1 Troponin I LESS THAN 0.02 Total Protein 8.1 Albumin 2.5 Lactic Acid Level 2.5 1.7 1.4 Test 12/22/16 06:07 White Blood Count 12.8 Red Blood Count 4.35 Hemoglobin 12.6 Hematocrit 39.3 Mean Corpuscular Volume 90.4 Mean Corpuscular Hemoglobin 28.9 Mean Corpuscular Hemoglobin 32.0 Concent Red Cell Distribution Width 14.0 Platelet Count 403 Mean Platelet Volume 9.4 Neutrophils (%) (Auto) 77.4 Lymphocytes (%) (Auto) 12.8 Monocytes (%) (Auto) 9.5 Eosinophils (%) (Auto) 0.1 Basophils (%) (Auto) 0.2 Neutrophils # (Auto) 9.9 Lymphocytes # (Auto) 1.6 Monocytes # (Auto) 1.2 Eosinophils # (Auto) 0.0 Basophils # (Auto) 0.0 CBC Comment DIFF FINAL Differential Comment Sodium Level 151 Potassium Level 4.8 Chloride Level 116 Carbon Dioxide Level 29.7 Anion Gap 5 Blood Urea Nitrogen 22 Creatinine 0.77 Estimat Glomerular Filtration 110 Rate Random Glucose 97 Lactic Acid Level 1.0 Calcium Level 8.3 Magnesium Level 2.7 Date/Time Procedure Status Source Growth 12/21/16 21:49 Aerobic Blood Culture Received Blood Peripheral Pending 12/21/16 21:49 Anaerobic Blood Culture Received Blood Peripheral Pending 12/21/16 16:40 Influenza Types A,B Antigen (LORY) - Final Complete Nasal Washing NEGATIVE FOR FLU A AND B ANTIGEN.... 12/21/16 14:15 Cancelled Nasal Washing ROS General: Other (unable to obtain ROS) Physical Exam Physical Exam GENERAL: This is a thin built male, demented, doesn't follow commands. SKIN: No rashes, ecchymoses or lesions. Cool and dry. Tenting noted. HEAD: Atraumatic. Normocephalic. No temporal or scalp tenderness. EYES: Pupils equal round and reactive. Extraocular motions intact. No scleral icterus. No injection or drainage. ENT: Nose without bleeding, purulent drainage or septal hematoma. Throat without erythema, tonsillar hypertrophy or exudate. Uvula midline. Airway patent. Oral mucosa dry. NECK: Trachea midline. No JVD or lymphadenopathy. Supple, nontender, no meningeal signs. CARDIOVASCULAR: Regular rate and rhythm, sinus tachycardia, no murmurs, no rubs , no gallops. Bilateral lower extremities without any clubbing, no cyanosis, no edema. Pedal pulses 2+ bilaterally RESPIRATORY: Diminished at bases GASTROINTESTINAL: Abdomen soft, non-tender, nondistended. No hepato-splenomegaly , or palpable masses. No guarding. MUSCULOSKELETAL: Extremities without clubbing, cyanosis, or edema. No joint tenderness, effusion, or edema noted. No calf tenderness. Negative Homans sign bilaterally. Muscle atrophy noted. NEUROLOGICAL: Patient is awake, nonverbal, demented. Does not follow commands. Some grunting, speech unintelligible. Urinary Catheter: No Vascular Central Line Catheter: No A/P Diagnosis: (1) Altered mental state (2) Sepsis (3) Failure of outpatient treatment (4) Pneumonia (5) Transaminitis (6) HX EARLY ONSET DEMENTIA (7) Seizures (8) Hypernatremia Assessment and Plan 41-year-old male sent from group home with altered mental status, was been treated with ceftriaxone and Levaquin for pneumonia. Recently admitted in October with sepsis, pneumonia, and respiratory failure. In the ER, patient evaluated and noted with leukocytosis, lactic acidosis, febrile with tachycardia , chest x-ray with findings of left lower lobe infiltrate. Admitted with sepsis secondary to pneumonia that has failed outpatient therapy, possibly aspiration and healthcare acquired pneumonia. -Continue with IVF Follow lactic acid in the morning, now normal Continue with antibiotics, follow cultures-negative so far NPO for now Dysphagia, aspiration PNA -NGT to be attempted again -may need PEG long-term Transaminitis, possibly secondary to sepsis Repeat LFTs in the morning Ultrasound of gallbladder and liver has been completed, no abnormalities noted. Hypernatremia-Na 151 -Change IVF to D5W @ 50/hr Hx of early onset dementia -continue home meds when NGT in place Seizure disorder -resume home meds, if pt. can take PO or administer via NGT -currently on hold, resume when NGT in place Psychosis -continue home meds Heparin for DVT prophylaxis Protonix for GI prophylaxis Prognosis guarded Pt. needs NGT, RN to try this afternoon. Due to concern for ongoing aspiration and continued decline with dementia, pt. most likely will need peg tube. Will d/w family Labs in am D/W RN D/W Dr. Albright This patient was seen by myself and Dr. Albright, this note is written on his behalf Problem Qualifiers (1) Altered mental state: Qualified Code: R41.82 - Altered mental status, unspecified altered mental status type (2) Sepsis: Qualified Code: A41.9 - Sepsis, due to unspecified organism (3) Pneumonia: Qualified Code: J18.1 - Pneumonia of left lower lobe due to infectious organism Tarah Patricio Dec 22, 2016 09:54
--- NOTE | 2016-12-22 13:19 | EKG ---
Date Performed: 12/21/2016 Time Performed: 14:32:41 PTAGE: 41 years EKG: SINUS TACHYCARDIA ABNORMAL RHYTHM ECG Compared to prior tracing no significant change PREVIOUS TRACING : 11/04/2016 13.14 DOCTOR: Tobias Mora Interpretating Date/Time 12/22/2016 13:14:40
[2016-12-22] MEDS: LACOSAMIDE 100 MG TAB PO SCH (16:52)
[2016-12-22] MEDS: PANTOPRAZOLE SODIUM 40 MG VIAL IV PUSH SCH (18:00)
[2016-12-22] MEDS: QUEtiapine FUMARATE 25 MG TAB PO SCH (21:49)
[2016-12-22] MEDS: MIRTAZAPINE 15 MG TAB PO SCH (21:49)
[2016-12-23] VITALS (24 sets, daily range): BP systolic 116–148; BP diastolic 77–99; PULSE 81–120; RESP 14–18; TEMP 97.9–99.6; O2SAT 92–95
[2016-12-23] MEDS: HEPARIN SODIUM - SQ 10,000 UNITS/ML VIAL SQ SCH ×2 (03:15→16:10)
[2016-12-23] MEDS: CEFEPIME INJ 2,000 MG in SODIUM CHLORIDE 0.9% INJ 100 ML IV SCH ×2 (03:24→16:10)
[2016-12-23] MEDS ORDERED: PHARMACY ORDERED LAB XX ONE (03:45)
[2016-12-23] MEDS: DEXTROSE 5% IN WATE 1000ML INJ 1,000 ML IV SCH ×2 (04:00→23:39)
[2016-12-23] MEDS: VANCOMYCIN INJ 1,000 MG in SODIUM CHLOR 0.9% 250 ML INJ 250 ML IV SCH ×2 (04:00→17:16)
[2016-12-23] MEDS: LACOSAMIDE 50 MG TAB PO SCH (06:00)
[2016-12-23] MEDS: OXcarbazepine 600 MG TAB PO SCH ×2 (09:06→19:49)
[2016-12-23] MEDS: DIAZEPAM 2 MG TAB PO SCH ×2 (09:06→19:49)
[2016-12-23] MEDS: SODIUM CHLORIDE 0.9% FLUSH 5 ML FLUSH FLUSH SCH ×2 (09:07→19:50)
--- NOTE | 2016-12-23 09:12 | HHI.PR ---
Subjective Remarks sleeping non verbal passed swallow eval tachycardic no fever unable to obtain ROS Objective Objective Results - Vital Signs Date Time Temp Pulse Resp B/P Pulse Ox O2 Delivery O2 Flow Rate FiO2 12/23/16 08:00 97.9 95 16 141/99 95 12/23/16 03:00 98.4 113 14 148/97 95 12/23/16 02:00 112 12/23/16 01:00 112 12/23/16 00:00 110 12/22/16 23:00 98.7 107 14 117/74 94 12/22/16 23:00 110 12/22/16 22:00 109 12/22/16 21:00 101 12/22/16 20:00 102 12/22/16 19:00 101 12/22/16 19:00 98.6 95 14 134/95 95 12/22/16 18:22 104 12/22/16 17:05 101 12/22/16 16:00 111 12/22/16 15:35 98.6 96 18 118/84 95 12/22/16 15:35 103 12/22/16 14:26 83 12/22/16 13:20 96 12/22/16 12:07 104 12/22/16 12:07 98.9 104 20 159/82 96 12/22/16 11:06 98 Nasal Cannula 2.00 12/22/16 10:25 103 I/O 12/22/16 12/22/16 12/22/16 12/23/16 12/23/16 12/23/16 07:00 15:00 23:00 07:00 15:00 23:00 Intake Total 500 ml 712 ml 1340 ml Balance 500 ml 712 ml 1340 ml Intake Oral 240 ml IV Total 500 ml 712 ml 1100 ml # Voids 2 3 2 # Bowel Movements 1 2 Result Diagram: 12/22/16 0607 12/22/16 0607 Imaging Last Impressions Chest X-Ray 12/21/16 1336 Signed Impressions: Service Date/Time: Wednesday, December 21, 2016 13:56 - CONCLUSION: Left lower lung infiltrate suggestive of pneumonia. Jelani Arias MD Other Results Laboratory Tests Test 12/23/16 04:58 Vancomycin Level Trough 8.6 Date/Time Procedure Status Source Growth 12/21/16 21:49 Aerobic Blood Culture - Preliminary Resulted Blood Peripheral NO GROWTH IN 1 DAY 12/21/16 21:49 Anaerobic Blood Culture - Preliminary Resulted Blood Peripheral NO GROWTH IN 1 DAY 12/21/16 16:40 Influenza Types A,B Antigen (LORY) - Final Complete Nasal Washing NEGATIVE FOR FLU A AND B ANTIGEN.... 12/21/16 14:15 Aerobic Blood Culture Ordered Blood Peripheral Pending 12/21/16 14:15 Anaerobic Blood Culture Ordered Blood Peripheral Pending 12/21/16 14:15 Cancelled Nasal Washing ROS General: Other (12 point ROS unable to obtaiin) Physical Exam Physical Exam GENERAL: This is a thin built male, demented, doesn't follow commands. SKIN: No rashes, ecchymoses or lesions. Cool and dry. Tenting noted. HEAD: Atraumatic. Normocephalic. No temporal or scalp tenderness. EYES: Pupils equal round and reactive. Extraocular motions intact. No scleral icterus. No injection or drainage. ENT: Nose without bleeding, purulent drainage or septal hematoma. Throat without erythema, tonsillar hypertrophy or exudate. Uvula midline. Airway patent. Oral mucosa dry. NECK: Trachea midline. No JVD or lymphadenopathy. Supple, nontender, no meningeal signs. CARDIOVASCULAR: Regular rate and rhythm, sinus tachycardia, no murmurs, no rubs , no gallops. Bilateral lower extremities without any clubbing, no cyanosis, no edema. Pedal pulses 2+ bilaterally RESPIRATORY: Diminished at bases GASTROINTESTINAL: Abdomen soft, non-tender, nondistended. No hepato-splenomegaly , or palpable masses. No guarding. MUSCULOSKELETAL: Extremities without clubbing, cyanosis, or edema. No joint tenderness, effusion, or edema noted. No calf tenderness. Negative Homans sign bilaterally. Muscle atrophy noted. NEUROLOGICAL: Patient sleeping, non verbal. Urinary Catheter: No Vascular Central Line Catheter: No A/P Diagnosis: (1) Altered mental state (2) Sepsis (3) Failure of outpatient treatment (4) Pneumonia (5) Transaminitis (6) HX EARLY ONSET DEMENTIA (7) Seizures (8) Hypernatremia Assessment and Plan 41-year-old male sent from [facility] with altered mental status, was been treated with ceftriaxone and Levaquin for pneumonia. Recently admitted in October with sepsis, pneumonia, and respiratory failure. In the ER, patient evaluated and noted with leukocytosis, lactic acidosis, febrile with tachycardia , chest x-ray with findings of left lower lobe infiltrate. Admitted with sepsis secondary to pneumonia that has failed outpatient therapy, possibly aspiration and healthcare acquired pneumonia. -Continue with IVF Follow lactic acid in the morning, now normal Continue with antibiotics, follow cultures-negative so far -passed swallow evaluation Dysphagia, aspiration PNA -passed swallow eval, continue to monitor for now -may need PEG long-term due to frequent aspiration PNA Transaminitis, possibly secondary to sepsis LFTs pending Ultrasound of gallbladder and liver has been completed, no abnormalities noted. Hypernatremia-Na 151 -Change IVF to D5W @ 50/hr -Labs pending Hx of early onset dementia -continue home meds when NGT in place Seizure disorder -resume home meds, if pt. can take PO or administer via NGT -currently on hold, resume when NGT in place Psychosis -continue home meds Tachycardia, afebrile -Lopressor 12.5mg PO BID Heparin for DVT prophylaxis Protonix for GI prophylaxis Prognosis guarded Due to concern for ongoing aspiration and continued decline with dementia, pt. most likely will need peg tube. Will d/w family labs today pending D/W RN D/W Dr. Albright This patient was seen by myself and Dr. Albright, this note is written on his behalf Problem Qualifiers (1) Altered mental state: Qualified Code: R41.82 - Altered mental status, unspecified altered mental status type (2) Sepsis: Qualified Code: A41.9 - Sepsis, due to unspecified organism (3) Pneumonia: Qualified Code: J18.1 - Pneumonia of left lower lobe due to infectious organism Tarah Patricio Dec 23, 2016 09:12
[2016-12-23] MEDS: METOPROLOL TARTRATE 25 MG TAB PO SCH ×2 (09:15→19:50)
[2016-12-23] MEDS ORDERED: PILL SPLITTER OTHER PRN (09:30)
[2016-12-23 11:26] LABS: HEMATOCRIT 36.9 % (39.0-51.0); MEAN CELL VOLUME 89.6 FL (80.0-100.0); MEAN CORPUSCULAR HEMOGLOBIN 29.2 PG (27.0-34.0); MEAN CORPUSCULAR HGB CONC 32.5 % (32.0-36.0); PLATELET COUNT 448 TH/MM3 (150-450); RED BLOOD COUNT 4.12 MIL/MM3 (4.50-5.90); RED CELL DISTRIBUTION WIDTH 13.8 % (11.6-17.2); REVIEW FLAG FINAL; WHITE BLOOD COUNT 11.3 TH/MM3 (4.0-11.0)
[2016-12-23 11:45] LABS: BICARBONATE 26.6 MEQ/L (21.0-32.0); INDIRECT BILIRUBIN 0.3 MG/DL (0.0-0.8); POTASSIUM 3.3 MEQ/L (3.5-5.1); TOTAL BILIRUBIN ADULT 0.4 MG/DL (0.2-1.0)
[2016-12-23] MEDS: LACOSAMIDE 100 MG TAB PO SCH (16:10)
[2016-12-23] MEDS: PANTOPRAZOLE SODIUM 40 MG VIAL IV PUSH SCH (17:17)
[2016-12-23] MEDS: MIRTAZAPINE 15 MG TAB PO SCH (19:50)
[2016-12-23] MEDS: QUEtiapine FUMARATE 25 MG TAB PO SCH (19:50)
[2016-12-24] VITALS (25 sets, daily range): BP systolic 106–149; BP diastolic 71–103; PULSE 82–117; RESP 16–20; TEMP 97.4–100.3; O2SAT 93–100
[2016-12-24] MEDS: HEPARIN SODIUM - SQ 10,000 UNITS/ML VIAL SQ SCH ×2 (02:57→15:11)
[2016-12-24] MEDS ORDERED: PHARMACY ORDERED LAB XX ONE (03:45)
[2016-12-24] MEDS: CEFEPIME INJ 2,000 MG in SODIUM CHLORIDE 0.9% INJ 100 ML IV SCH ×2 (04:00→17:55)
[2016-12-24] MEDS: LACOSAMIDE 50 MG TAB PO SCH (06:00)
[2016-12-24] MEDS: VANCOMYCIN INJ 1,000 MG in SODIUM CHLOR 0.9% 250 ML INJ 250 ML IV SCH ×3 (06:00→23:27)
[2016-12-24 06:51] LABS: HEMATOCRIT 36.5 % (39.0-51.0); MEAN CELL VOLUME 89.3 FL (80.0-100.0); MEAN CORPUSCULAR HEMOGLOBIN 29.6 PG (27.0-34.0); MEAN CORPUSCULAR HGB CONC 33.2 % (32.0-36.0); PLATELET COUNT 423 TH/MM3 (150-450); RED BLOOD COUNT 4.09 MIL/MM3 (4.50-5.90); RED CELL DISTRIBUTION WIDTH 13.7 % (11.6-17.2); REVIEW FLAG FINAL; WHITE BLOOD COUNT 12.2 TH/MM3 (4.0-11.0)
[2016-12-24 07:03] LABS: BICARBONATE 27.9 MEQ/L (21.0-32.0); POTASSIUM 3.5 MEQ/L (3.5-5.1); VANCOMYCIN TROUGH 8.6 MCG/ML (5.0-10.0)
--- NOTE | 2016-12-24 09:07 | MG ---
cc: BANDAR MARIANO MD Lab No: [id number] Date: 12/23/2016 : 1975 Sex: M INDICATION A 41-year-old with a history of dementia, lethargy, confusion. DESCRIPTION Generalized theta and delta activity, 20-50 microvolts present. Sharp frontal wave noted at epoch 2. Tiny sharp wave F7, epoch 27. Frontal sharp wave epoch 39. A couple of body twitches, myogenic type potential associated with them. Myoclonic type potentials noted in the frontal channels with series occurring epoch 103 associated with body twitching. Single lead EKG showing sinus rhythm. INTERPRETATION Moderate encephalopathy, episodic isolated frontal sharp waves and myoclonic type potentials associated with generalized body jerks. Clinical correlation. Bandar Mariano MD MG/BT /10:20 PM /8:58 AM
[2016-12-24] MEDS: OXcarbazepine 600 MG TAB PO SCH ×2 (09:09→23:28)
[2016-12-24] MEDS: DIAZEPAM 2 MG TAB PO SCH ×2 (09:10→23:29)
[2016-12-24] MEDS: SODIUM CHLORIDE 0.9% FLUSH 5 ML FLUSH FLUSH SCH ×2 (09:11→23:30)
[2016-12-24] MEDS: METOPROLOL TARTRATE 25 MG TAB PO SCH ×2 (09:11→23:28)
[2016-12-24] MEDS ORDERED: LACOSAMIDE 50 MG TAB PO ONE (09:30)
--- NOTE | 2016-12-24 11:30 | HHI.PR ---
Subjective Interval History eyes open, responsive, not Verbal to me, no visible distress, Taking his pills with applesauce according to the nurse Review of Systems Constitutional Constitutional Remarks Not.Possible Vitals/Results Intake & Output 12/23/16 12/23/16 12/24/16 15:00 23:00 07:00 Intake Total 3085 ml Balance 3085 ml Intake Oral 100 ml IV Total 2985 ml # Voids 3 2 Vital Signs Vital Signs Date Time Temp Pulse Resp B/P Pulse Ox O2 Delivery O2 Flow Rate FiO2 12/24/16 11:04 97.9 86 20 106/73 100 12/24/16 07:18 97.4 112 18 149/103 100 12/24/16 07:15 112 12/24/16 06:00 105 12/24/16 05:00 105 12/24/16 04:00 98.9 109 18 149/103 96 12/24/16 04:00 109 12/24/16 03:00 106 12/24/16 02:00 106 12/24/16 01:00 104 12/24/16 00:00 99.0 109 18 140/71 93 12/24/16 00:00 108 12/23/16 23:00 109 12/23/16 22:00 109 12/23/16 21:00 108 12/23/16 20:00 109 12/23/16 19:48 99.5 108 18 116/82 93 12/23/16 19:00 112 12/23/16 17:00 95 12/23/16 17:00 98 12/23/16 16:00 92 12/23/16 15:00 99.1 103 18 128/92 94 12/23/16 15:00 120 12/23/16 14:09 Nasal Cannula 2.00 12/23/16 13:00 99 12/23/16 12:00 96 12/23/16 11:34 99.6 92 16 121/77 92 CBC/BMP: 12/24/16 0605 12/24/16 0605 Lab Results Laboratory Tests Test 12/24/16 06:05 White Blood Count 12.2 TH/MM3 Red Blood Count 4.09 MIL/MM3 Hemoglobin 12.1 GM/DL Hematocrit 36.5 % Mean Corpuscular Volume 89.3 FL Mean Corpuscular Hemoglobin 29.6 PG Mean Corpuscular Hemoglobin 33.2 % Concent Red Cell Distribution Width 13.7 % Platelet Count 423 TH/MM3 Mean Platelet Volume 9.0 FL Sodium Level 147 MEQ/L Potassium Level 3.5 MEQ/L Chloride Level 111 MEQ/L Carbon Dioxide Level 27.9 MEQ/L Anion Gap 8 MEQ/L Blood Urea Nitrogen 9 MG/DL Creatinine 0.57 MG/DL Estimat Glomerular Filtration 156 ML/MIN Rate Random Glucose 103 MG/DL Calcium Level 8.0 MG/DL Vancomycin Level Trough 8.6 MCG/ML Physical Exam General General Appearance: Comfortable, Malnourished Eyes Eye Exam: Pupils Reactive Ears & Nose Ears & Nose Exam: Nasal Mucosa [place] Throat Throat Exam: Oral Mucosa [place] & Moist Neck Neck Exam: Trachea Midline Pulmonary Resp Exam: Crackles Gastrointestinal/Abdomen GI Exam: Soft, Non-Tender, Bowel Sounds Present Musculoskeletal MS Exam: Rigidity, Unable to Ambulate MS Remarks Contracted Integumentary Skin Exam: Warm Neurologic Neuro Exam: Alert VTE Prophylaxis VTE Prophylaxis Meds: Heparin Assessment/Plan Assessment/Plan Assessment HealthCare associated bilateral pneumonia Suspected aspiration. Malnutrition. Hypernatremia Transaminitis, resolved Management. Switch antibiotic to orally Discharge back to skilled nursing Family declined the offer of a PEG tube Expect elevated sodium level to continue because of poor intake High risk of recurrent aspiration for the future Poor long-term prognosis Discussed with nurse Discharge Minutes: 40 Orestes Albright MD Dec 24, 2016 11:30
[2016-12-24] MEDS ORDERED: LORA-392 PO (13:52)
[2016-12-24] MEDS: LACOSAMIDE 100 MG TAB PO SCH (15:11)
[2016-12-24] MEDS: PANTOPRAZOLE SODIUM 40 MG VIAL IV PUSH SCH (17:55)
[2016-12-24] MEDS: QUEtiapine FUMARATE 25 MG TAB PO SCH (23:29)
[2016-12-24] MEDS: MIRTAZAPINE 15 MG TAB PO SCH (23:29)
[2016-12-25] MEDS: DEXTROSE 5% IN WATE 1000ML INJ 1,000 ML IV SCH (00:54)
[2016-12-25 04:54] VITALS: BP 106/77; PULSE 98; RESP 16; TEMP 98.7; O2SAT 100
[2016-12-25] MEDS: HEPARIN SODIUM - SQ 10,000 UNITS/ML VIAL SQ SCH (05:13)
[2016-12-25] MEDS: CEFEPIME INJ 2,000 MG in SODIUM CHLORIDE 0.9% INJ 100 ML IV SCH (05:14)
[2016-12-25] MEDS: VANCOMYCIN INJ 1,000 MG in SODIUM CHLOR 0.9% 250 ML INJ 250 ML IV SCH (05:14)
[2016-12-25] MEDS: LACOSAMIDE 50 MG TAB PO SCH (05:15)
[2016-12-25] MEDS ORDERED: VIBR50SY PO (06:13)
[2016-12-25] MEDS ORDERED: diphenhydrAMINE HCL 50 MG/ML VIAL IV PRN (06:45)
[2016-12-25 07:05] VITALS: BP 129/83; PULSE 113; RESP 23; TEMP 99.1
[2016-12-25] MEDS: DIAZEPAM 2 MG TAB PO SCH (09:00)
[2016-12-25] MEDS: OXcarbazepine 600 MG TAB PO SCH (09:00)
[2016-12-25] MEDS: METOPROLOL TARTRATE 25 MG TAB PO SCH (09:00)
[2016-12-25 09:01] VITALS: PULSE 116
--- NOTE | 2016-12-25 09:50 | HHI.PR ---
Subjective Interval History eyes open, responsive, not Verbal , no visible distress, Review of Systems Constitutional Constitutional Remarks Not.Possible Vitals/Results Intake & Output 12/24/16 12/24/16 12/25/16 15:00 23:00 07:00 Intake Total 1480 ml 100 ml Balance 1480 ml 100 ml Intake Oral 480 ml 100 ml IV Total 1000 ml # Voids 2 2 Vital Signs Vital Signs Date Time Temp Pulse Resp B/P Pulse Ox O2 Delivery O2 Flow Rate FiO2 12/25/16 09:01 116 12/25/16 07:05 113 12/25/16 07:05 99.1 113 23 129/83 12/25/16 04:54 98.7 98 16 106/77 100 12/24/16 23:50 98.6 89 16 123/80 98 12/24/16 21:11 98.6 95 16 107/90 100 12/24/16 18:02 88 12/24/16 18:01 98.7 12/24/16 17:02 101 12/24/16 16:32 113 12/24/16 15:00 100.3 87 20 125/76 94 12/24/16 15:00 84 12/24/16 14:00 103 12/24/16 13:00 82 12/24/16 12:00 84 12/24/16 11:04 97.9 86 20 106/73 100 12/24/16 11:00 84 12/24/16 10:00 117 CBC/BMP: 12/24/16 0605 12/24/16 0605 Physical Exam General General Appearance: Comfortable, Malnourished Eyes Eye Exam: Pupils Reactive Ears & Nose Ears & Nose Exam: Nasal Mucosa [place] Throat Throat Exam: Oral Mucosa [place] & Moist Neck Neck Exam: Trachea Midline Pulmonary Resp Exam: Crackles Gastrointestinal/Abdomen GI Exam: Soft, Non-Tender, Bowel Sounds Present Musculoskeletal MS Exam: Rigidity, Unable to Ambulate MS Remarks Contracted Integumentary Skin Exam: Warm Neurologic Neuro Exam: Alert VTE Prophylaxis VTE Prophylaxis Meds: Heparin Assessment/Plan Assessment/Plan Assessment HealthCare associated bilateral pneumonia on oral antibiotics Suspected aspiration. family declined PEG tube, they were informed about the future risk of further aspiration Malnutrition. Transaminitis, resolved Management. Discharge back to alf Family declined the offer of a PEG tube Expect elevated sodium level to continue because of poor intake High risk of recurrent aspiration for the future Poor long-term prognosis Discussed with nurse Discharge Minutes: 45 Orestes Albright MD Dec 25, 2016 09:50
[2016-12-25] MEDS: SODIUM CHLORIDE 0.9% FLUSH 5 ML FLUSH FLUSH SCH (10:08)
[2016-12-25 11:17] VITALS: O2SAT 96
[2016-12-25 11:19] VITALS: PULSE 112
[2016-12-25] MEDS ORDERED: PHARMACY ORDERED LAB XX ONE (13:45)
--- NOTE | 2017-01-23 18:30 | HHI.DS ---
Discharge Summary Admission Date Dec 21, 2016 at 15:27 Discharge Date: Dec 25, 2016 Admitting Diagnosis SEVERE SEPSIS, PNA; AMS (1) Altered mental state Diagnosis: Principal (2) Sepsis (3) Failure of outpatient treatment Diagnosis: Secondary (4) Pneumonia Diagnosis: Principal (5) Transaminitis Diagnosis: Principal (6) HX EARLY ONSET DEMENTIA Diagnosis: Secondary (7) Seizures Diagnosis: Principal (8) Hypernatremia Diagnosis: Principal Brief History This was an unfortunate 41-year-old male with history of early-onset dementia, psychosis, seizure disorder. Patient was recently admitted from 11/04 to 11/19 with sepsis, resp. failure, aspiration PNA, acute renal injury, rash. Patient was sent back from the long-term for evaluation of altered mental status and decreased oral intake. Patient was been treated for pneumonia with Rocephin IM and by mouth Levaquin. Patient was unable to provide any information, he was demented and nonverbal. Information was obtained from the medical record and from long-term documentation. Imaging Last Impressions Chest X-Ray 12/21/16 1336 Signed Impressions: Service Date/Time: Wednesday, December 21, 2016 13:56 - CONCLUSION: Left lower lung infiltrate suggestive of pneumonia. Jelani Arias MD Gall Bladder Ultrasound 12/21/16 0000 Signed Impressions: Service Date/Time: Wednesday, December 21, 2016 15:16 - CONCLUSION: Negative sonogram of the liver and gallbladder. Celio Wheat MD PE at Discharge General General Appearance: Comfortable, Malnourished Eyes Eye Exam: Pupils Reactive Ears & Nose Ears & Nose Exam: Nasal Mucosa [place] Throat Throat Exam: Oral Mucosa [place] & Moist Neck Neck Exam: Trachea Midline Pulmonary Resp Exam: Crackles Gastrointestinal/Abdomen GI Exam: Soft, Non-Tender, Bowel Sounds Present Musculoskeletal MS Exam: Rigidity, Unable to Ambulate MS Remarks Contracted Integumentary Skin Exam: Warm Neurologic Neuro Exam: Alert VTE Prophylaxis VTE Prophylaxis Meds: Heparin Hospital Course Patient was evaluated in the emergency room, he was noted tachycardic, febrile, blood pressure was stable. Sats were 96% on 2 L. He was noted with leukocytosis, WBC 14.5, with elevated neutrophil count. Lactic acid 2.5. Sodium level was 147, BUNs 24, creatinine 0.95. He was noted with elevated liver enzymes, AST 67, AST 113 and alkaline phosphatase 179. Chest x-ray was done showing left lower lobe infiltrate. An ultrasound of the gallbladder we will was done because of elevation in liver enzymes. Last Impressions Chest X-Ray 12/21/16 1336 Signed Impressions: Service Date/Time: Wednesday, December 21, 2016 13:56 - CONCLUSION: Left lower lung infiltrate suggestive of pneumonia. Jelani Arias MD Gall Bladder Ultrasound 12/21/16 0000 Signed Impressions: Service Date/Time: Wednesday, December 21, 2016 15:16 - CONCLUSION: Negative sonogram of the liver and gallbladder. Celio Wheat MD Patient was fluid resuscitated, cultures were obtained and he was started on empiric antibiotics. Patient is evaluated in the emergency room, he is nonverbal. He's noted twitching, does not track, he is tachycardic 110s. Blood pressure stable. Patient is admitted for further evaluation and treatment. These diagnoses were used for patient's plan of care set up during this hospital course. (1) Altered mental state (2) Sepsis (3) Failure of outpatient treatment (4) Pneumonia (5) Transaminitis (6) HX EARLY ONSET DEMENTIA (7) Seizures (8) Hypernatremia Assessment and Plan 41-year-old male sent from long-term with altered mental status, was been treated with ceftriaxone and Levaquin for pneumonia. Recently admitted in October with sepsis, pneumonia, and respiratory failure. In the ER, patient evaluated and noted with leukocytosis, lactic acidosis, febrile with tachycardia , chest x-ray with findings of left lower lobe infiltrate. Admitted with sepsis secondary to pneumonia that has failed outpatient therapy, possibly aspiration and healthcare acquired pneumonia. -Continue with IVF on admission for gentle hydration Follow lactic acid in the morning, now normal. Concern over septicemia. Continue with antibiotics, follow cultures-negative so far Patient evaluated per speech therapy.-passed swallow evaluation Dysphagia, aspiration PNA -passed swallow eval, continue to monitor for now -may need PEG long-term due to frequent aspiration PNA, but probably not at this time Transaminitis, possibly secondary to sepsis LFTs pending Ultrasound of gallbladder and liver has been completed, no abnormalities noted. Hypernatremia-Na 151 -Change IVF to D5W @ 50/hr -Labs labs were monitored for sodium levels. Level was brought back down to 147 with medical management. Hx of early onset dementia -continue home meds when NGT in place Seizure disorder -resume home meds, if pt. can take PO or administer via NGT -currently on hold, resume when NGT in place Psychosis -continue home meds Tachycardia, afebrile -Lopressor 12.5mg PO BID Heparin for DVT prophylaxis Protonix for GI prophylaxis Prognosis guarded during this hospital stay. Patient has multi-medical comorbidities which play a jimenez factor in his illness and recovery. Due to concern for ongoing aspiration and continued decline with dementia, pt. most likely will need peg tube. This option of PEG tube was discussed with family. No PEG tube for now. Patient was stabilized from his pneumonia and other admission comorbidities/ diagnosis. Transferred back to his SNF. Dr. Albright states Suspected aspiration. Malnutrition. Hypernatremia Transaminitis, resolved Switch antibiotic to orally Discharge back to long-term Family declined the offer of a PEG tube Expect elevated sodium level to continue because of poor intake High risk of recurrent aspiration for the future Poor long-term prognosis Discussed with nurse Pt Condition on Discharge: Stable Discharge Disposition: Discharge to SNF Discharge Instructions DIET: Follow Instructions for: Soft Diet Speech Therapy-Diet Recommends: Pureed Activities you can perform: Continue Bedrest New Medications: Doxycycline Calcium Liq (Vibramycin Liq) 50 Mg/5 Ml Syrp 100 MG PO BID Infection #30 Ref 0 ML Lorazepam (Ativan) 0.5 Mg Tab 0.5 MG PO DAILY PRN ANXIETY AND/OR AGITATION #30 Ref 0 TAB Continued Medications: Acetaminophen (Mapap) 325 Mg Tab 325 MG PO Q4HR PRN PAIN Ref 0 TAB Diphenhydramine (Diphenhydramine) 25 Mg Cap 25 MG PO Q6H PRN RASH Days 10 CAP Folic Acid (Folic Acid) 400 Mcg Tab 400 MCG PO DAILY Nutritional Supplement Ref 0 TAB Lacosamide (Vimpat) 50 Mg Tab 50 MG PO DAILY@0600 seizure Days 30 TAB Lacosamide (Vimpat) 100 Mg Tab 100 MG PO DAILY@1600 seizure Days 30 TAB Magnesium Hydroxide Liq (Milk of Magnesia Liq) 400 Mg/5 Ml Susp 30 ML PO EVERY 3 DAYS Constipation #30 Ref 0 ML Mirtazapine (Remeron) 15 Mg Tab 7.5 MG PO HS Depression Control #15 Ref 0 TAB Nystatin Liq (Nystatin Liq) 100,000 unit/ml Susp 5 ML SWISH-SWAL TID Infection Ref 0 ML Oxcarbazepine (Oxcarbazepine) 600 Mg Tab 1200 MG PO DAILY Seizure Control #30 Ref 0 TAB Oxcarbazepine (Oxcarbazepine) 600 Mg Tab 600 MG PO HS Seizure Control #60 Ref 0 TAB Quetiapine (Seroquel) 25 Mg Tab 25 MG PO HS SCHIZOPHRENIA #30 Ref 0 TAB Ranitidine (Zantac) 150 Mg Tab 150 MG PO DAILY GERD #30 Ref 0 TAB Discontinued Medications: Ceftriaxone Inj (Rocephin Inj) 1 Gm Inj 1 GM IM Q24H Infection Ref 0 VIAL Clorazepate (Tranxene T) 7.5 Mg Tab 3.75 MG PO BID Anxiety Ref 0 TAB Levofloxacin (Levofloxacin) 500 Mg Tab 500 MG PO DAILY Infection Ref 0 TAB Lorazepam (Ativan) 0.5 Mg Tab 0.5 MG PO Q8H PRN ANXIETY AND/OR AGITATION Ref 0 TAB Additional Information Follow-up with PCP 1-2 weeks or physician in the SNF Luz Maria Sheppard Jan 23, 2017 18:30
== END 2016-12-25 11:25 | DRG 871 ==
LOC: NEPA 13:27 → NEDA 15:27 → HCIN 20:00
PROVIDERS: ADMIT Specialist; ATTEND Specialist
DX: A41.9 Sepsis, unspecified organism (principal); J18.9 Pneumonia, unspecified organism; J69.0 Pneumonitis due to inhalation of food and vomit; E87.2 Acidosis; E87.0 Hyperosmolality and hypernatremia; E46 Unspecified protein-calorie malnutrition; R13.10 Dysphagia, unspecified; G30.9 Alzheimer's disease, unspecified; F02.80 Dementia in other diseases classified elsewhere, unspecified severity, without behavioral disturbance, psychotic disturbance, mood disturbance, and anxiety; F25.9 Schizoaffective disorder, unspecified; G40.909 Epilepsy, unspecified, not intractable, without status epilepticus; R74.0 Nonspecific elevation of levels of transaminase and lactic acid dehydrogenase [LDH]; Y95 Nosocomial condition
CPT/HCPCS: 71010; 76705; 76937; 80048; 80053; 80076; 80202; 81001; 82550; 82552; 83605; 83735; 84484; 85025; 85027; 85610; 85730; 87040; 87077; 87186; 87205; 87804; 93005; 94664; 95819; C9113; J0456; J0692; J1200; J1644; J2543; J2930; J3370; J7030; J7050; J7070; J7613